=== PATIENT | female | born 1970 | race Caucasian/White ===

== ENCOUNTER 2020-07-12 15:51 | Emergency (ER) | payer OTHER ==
[~2020-07-12] VITALS: Ht 167.6 cm; Wt 63.5 kg
[2020-07-12 18:37] LABS: ABSOLUTE BASOPHILS 0.1 thou/uL (0.0-0.2); ABSOLUTE EOSINOPHILS 0.1 thou/uL (0.0-0.7); ABSOLUTE LYMPHOCYTES 1.9 thou/uL (0.8-5.3); ABSOLUTE MONOCYTES 1.6 thou/uL (0.0-1.2); ABSOLUTE NEUTROPHILS 9.7 thou/uL (1.6-8.1); BASOPHILS 0.6 %; HEMATOCRIT 40.6 % (37.0-47.0); HEMOGLOBIN 14.2 gm/dL (12.0-15.0); LYMPHOCYTES 14.2 %; MCH 34.8 pg (26.0-34.0); MCHC 34.9 g/dL (28.0-37.0); MCV 99.6 fL (80.0-100.0); MONOCYTES 11.8 %; MPV 6.7 fl. (7.2-11.1); NUCLEATED RBCS 0 /100WBC; PLATELET COUNT* 242 thou/uL (150-400); POLYS 72.4 %; RBC 4.07 mil/uL (4.20-5.00); RDW-CV 11.6 % (10.5-14.5); WBC 13.4 thou/uL (4.0-11.0)
[2020-07-12 18:42] LABS: CALCIUM 9.1 mg/dL (8.5-10.1); CREATININE 0.7 mg/dL (0.6-1.3); POTASSIUM 3.8 mmol/L (3.5-5.1)
[2020-07-12 18:47] LABS: ALBUMIN 3.8 g/dL (3.4-5.0); TOTAL BILIRUBIN 0.9 mg/dL (<0.1-1.0); TOTAL PROTEIN 7.7 g/dL (6.4-8.2)
[2020-07-12] MEDS ORDERED: NORCO 5-325 TA1 EAC2 PO (20:19)
[2020-07-12] MEDS ORDERED: IBUPROFEN 800800 M1 PO (20:19)
[2020-07-12] MEDS ORDERED: AUGMENTIN 875-1 EACH PO (20:19)
[2020-07-12 20:31] VITALS: BP 126/81
== END 2020-07-12 20:32 | disposition home or self-care (01) ==
LOC: M.ERS 15:51
PROVIDERS: Nurse Practitioner Family
DX: L03.211 Cellulitis of face (principal); K03.81 Cracked tooth